=== PATIENT | female | born 1995 ===

== ENCOUNTER 2017-02-20 08:25 | Emergency (ER) | payer MEDICAID ==
[2017-02-20 08:28] VITALS: RESP 19; BMI 22.1
--- NOTE | 2017-02-20 08:39 | ED PDOC ---
HPI: General Adult Time Seen by Provider: 02/20/17 08:32 Chief Complaint (Nursing): Abdominal Pain Chief Complaint (Provider): abdominal pain History Per: Patient History/Exam Limitations: no limitations Additional Complaint(s): 21yo female comes to the ED complaining of sharp abdominal pain that woke her this morning. States she had similar pain 2 days ago and several years ago. Pain several years ago was associated with a ruptured cyst. Last menstrual period was approximately 1 month ago however pain today is worse that normally associated with a period. No nausea, vomit, diarrhea, hematuria, dysuria. Past Medical History Reviewed: Historical Data, Nursing Documentation, Vital Signs Vital Signs: Last Vital Signs Temp 98.4 F 02/20/17 08:26 Pulse 91 H 02/20/17 08:26 Resp 19 02/20/17 08:26 BP 109/71 02/20/17 08:26 Pulse Ox 98 02/20/17 08:44 - Medical History Other PMH: ovarian cyst - Surgical History Surgical History: No Surg Hx - Family History Family History: States: Unknown Family Hx - Home Medications Home Medications: Ambulatory Orders Medication Instructions Recorded Miconazole 2% [Miconazole 2% Cream] 1 ea EXT BID #1 tube 10/25/14 Nitrofurantoin Macrocrystals 100 mg PO BID #14 cap 12/16/14 [Macrobid] Ciprofloxacin HCl [Cipro] 500 mg PO BID #20 tab 02/20/17 traMADol [Ultram] 50 mg PO Q8 #10 tab 02/20/17 - Allergies Allergies/Adverse Reactions: Allergies Allergy/AdvReac Type Severity Reaction Status Date / Time acetaminophen [From Percocet] Allergy Mild RASH Verified 02/20/17 08:29 oxycodone HCl [From Percocet] Allergy Mild RASH Verified 02/20/17 08:29 Review of Systems ROS Statement: Except As Marked, All Systems Reviewed And Found Negative Gastrointestinal: Positive for: Abdominal Pain. Negative for: Nausea, Vomiting , Diarrhea Genitourinary Female: Negative for: Dysuria, Hematuria Physical Exam - Reviewed Nursing Documentation Reviewed: Yes Vital Signs Reviewed: Yes - Physical Exam Appears: Positive for: Well, Non-toxic, No Acute Distress Head Exam: Positive for: ATRAUMATIC, NORMAL INSPECTION, NORMOCEPHALIC Skin: Positive for: Warm, Dry Eye Exam: Positive for: EOMI, PERRL Respiratory: Negative for: Respiratory Distress Gastrointestinal/Abdominal: Positive for: Soft, Tenderness (right lower quadrant ). Negative for: Guarding, Rebound Extremity: Positive for: Normal ROM Neurologic/Psych: Positive for: Alert, Oriented (x3) - Laboratory Results Result Diagrams: 02/20/17 08:49 02/20/17 08:49 - ECG O2 Sat by Pulse Oximetry: 98 (RA) Pulse Ox Interpretation: Normal Medical Decision Making Medical Decision Makin impression ovarian cyst vs appendicitis Plan: -US Transvaginal -CT abd/pel -Labs -reassess Disposition - Clinical Impression Clinical Impression: Ovarian cyst - Patient ED Disposition Is Patient to be Admitted: No - Disposition [facility] Disposition: Routine/Home Disposition Time: 14:47 Condition: FAIR Prescriptions: Ciprofloxacin HCl [Cipro] 500 mg PO BID #20 tab traMADol [Ultram] 50 mg PO Q8 #10 tab Instructions: Ovarian Cyst (ED) Additional Comments - Additional Comments Additional Comments: Scribe Attestation: Documented by Ronald Calvillo acting as a scribe for Emeterio Menon MD. Provider Scribe Attestation: All medical record entries made by the Scribe were at my direction and personally dictated by me. I have reviewed the chart and agree that the record accurately reflects my personal performance of the history, physical exam, medical decision making, and the department course for this patient. I have also personally directed, reviewed, and agree with the discharge instructions and disposition.
[2017-02-20] MEDS ORDERED: Iohexol 240 (50 ml) ONE (08:41)
[2017-02-20] MEDS ORDERED: Iohexol 240 (50 ml) PO ONE (08:42)
[2017-02-20 08:57] LABS: BASO # 0.1 K/uL (0.0-0.2); BASO % 0.7 % (0.0-2.0); EOS # 0.5 K/uL (0.0-0.7); EOS % 7.2 % (0.0-4.0); HEMATOCRIT 36.9 % (34.0-47.0); LYMPH # 2.7 K/uL (1.0-4.3); LYMPH % 36.4 % (20.0-40.0); MEAN CORPUSCULAR HEMOGLOBIN 28.9 pg (27.0-31.0); MEAN CORPUSCULAR HGB CONC 33.2 g/dL (33.0-37.0); MEAN PLATELET VOLUME 7.2 fl (7.2-11.7); MONO # 0.4 K/uL (0.0-0.8); MONO % 5.5 % (0.0-10.0); NEUT # 3.8 K/uL (1.8-7.0); NEUT % 50.2 % (50.0-75.0); NRBC % 0.1 % (0.0-0.0); RED CELL DISTRIBUTION WIDTH 15.7 % (11.5-14.5); WHITE BLOOD COUNT 7.5 K/uL (4.8-10.8)
[2017-02-20 09:03] LABS: ALB/GLOB RATIO 1.2 (1.0-2.1); ALKALINE PHOSPHATASE 58 U/L (38-126); ALT/SGPT 22 U/L (9-52); AST/SGOT 24 U/L (14-36); BILIRUBIN,TOTAL 0.3 mg/dl (0.2-1.3); BLOOD UREA NITROGEN 17 mg/dl (7-17); CALCIUM 9.4 mg/dL (8.4-10.2); CARBON DIOXIDE 21 mmol/L (22-30); CHLORIDE 106 mmol/L (98-107); GFR AFRICAN-AMERICAN > 60; GLUCOSE,RANDOM 86 mg/dL (65-105); SODIUM 140 mmol/l (132-148); TOTAL PROTEIN 7.6 G/DL (6.3-8.2)
--- NOTE | 2017-02-20 10:18 | US ---
HISTORY: RLQ pain COMPARISON: Transvaginal ultrasound performed 05/18/14 TECHNIQUE: Transvaginal pelvic ultrasound FINDINGS: UTERUS: Measures 8.9 x 5.9 x 4.5 cm. Anteverted. ENDOMETRIUM: Measures 1.4 cm in diameter. CERVIX: No cervical abnormality identified. RIGHT OVARY: Measures 4.9 x 4.0 x 3.7 cm. Blood flow is demonstrated to the right ovary. 2.8 x 2.9 x 1.0 cm complex appearing cyst. 1 cm probable para ovarian cyst. LEFT OVARY: Measures 3.1 x 2.8 x 2.4 cm. Blood flow is demonstrated to the left ovary. FREE FLUID: Small pelvic free fluid. Left adnexal free fluid. OTHER FINDINGS: None. IMPRESSION: 2.8 x 2.9 x 1.0 cm complex appearing right ovarian cyst. 1 cm probable right para ovarian cyst. Small pelvic free fluid. Left adnexal free fluid.
[2017-02-20] MEDS ORDERED: Iohexol 300 50 ML ONE (13:42)
[2017-02-20] MEDS ORDERED: Sodium Chloride 0.9% 50 ML IV ONE (13:43)
--- NOTE | 2017-02-20 14:46 | CT ---
PROCEDURE: CT Abdomen and Pelvis with oral and IV contrast. HISTORY: abd pain COMPARISON: CT abdomen and pelvis performed 12/04/12, transvaginal ultrasound performed 02/20/17 TECHNIQUE: Contiguous axial images of the abdomen and pelvis. Oral and IV contrast was administered. Coronal and Sagittal reformats generated and reviewed. Contrast dose: 95 mL Omnipaque 300 Radiation dose: Total exam DLP = 353.36 mGy-cm. This CT exam was performed using one or more of the following dose reduction techniques: Automated exposure control, adjustment of the mA and/or kV according to patient size, and/or use of iterative reconstruction technique. FINDINGS: LOWER THORAX: No visible consolidation, pleural effusion, or pneumothorax. LIVER: Unremarkable. GALLBLADDER AND BILE DUCTS: Unremarkable. PANCREAS: Unremarkable. SPLEEN: Unremarkable. ADRENALS: Unremarkable. KIDNEYS AND URETERS: The kidneys enhance symmetrically. No hydronephrosis or obstructing renal calculus. BLADDER: Distended urinary bladder. REPRODUCTIVE: Uterus is present. APPENDIX: The appendix appears within normal limits of caliber. No secondary signs of acute appendicitis. BOWEL: The stomach is nondistended. The bowel loops appear within normal limits of caliber without evidence of intestinal obstruction. PERITONEUM: Small pelvic free fluid. Left adnexal fluid. No definite free air. LYMPH NODES: No bulky lymphadenopathy identified. VASCULATURE: No aortic aneurysm. BONES: No acute osseous abnormality is detected. OTHER FINDINGS: None. IMPRESSION: Small pelvic free fluid. Prominent left adnexal fluid. Distended urinary bladder.
[2017-02-20 14:59] VITALS: BP 110/74; PULSE 69; TEMP 98.6; O2SAT 100
== END 2017-02-20 14:59 | disposition home or self-care (01) ==
LOC: H.ER 08:25
DX: N83.209 Unspecified ovarian cyst, unspecified side (principal); R10.31 Right lower quadrant pain

== ENCOUNTER 2017-02-22 14:57 | Emergency (ER) | payer MEDICAID ==
[2017-02-22 14:57] VITALS: BMI 22.1
[2017-02-22 15:25] VITALS: BP 112/74; PULSE 84; RESP 16; TEMP 98.2; O2SAT 100
--- NOTE | 2017-02-22 15:36 | ED PDOC ---
HPI: Allergic Reaction Time Seen by Provider: 02/22/17 15:28 Chief Complaint (Nursing): Allergic Reaction Chief Complaint (Provider): rash History Per: Patient History/Exam Limitations: no limitations Onset/Duration Of Symptoms: Hrs Current Symptoms Are (Timing): Still Present Additional Complaint(s): 21 y/o female presents to the emergency department with a complaint of an allergy to the intravenous contrast dye that she received for a CT abdomen/ pelvis on 02/20/2017 in this ED. Patient states itchiness and rash began shortly after receiving the dye. She reports she had experienced similar episode the last time she received IV dye but at the time she has also taken percocet and thought this is what caused the allergy. Patient has since taken percocet with no reaction. Patient took Benadryl yesterday but it did not help. She denies shortness of breath or difficulty swallowing. Past Medical History Reviewed: Historical Data, Nursing Documentation, Vital Signs Vital Signs: Last Vital Signs Temp 98.2 F 02/22/17 15:23 Pulse 84 02/22/17 15:23 Resp 16 02/22/17 15:23 BP 112/74 02/22/17 15:23 Pulse Ox 100 02/22/17 15:23 - Medical History PMH: Anemia - Surgical History Other surgeries: ovarian cyst removal - Family History Family History: States: No Known Family Hx - Living Arrangements Living Arrangements: With Family - Social History Current smoker - smoking cessation education provided: No Ex-Smoker (has not smoked in the last 12 months): No Alcohol: None Drugs: Denies - Home Medications Home Medications: Ambulatory Orders Medication Instructions Recorded Miconazole 2% [Miconazole 2% Cream] 1 ea EXT BID #1 tube 10/25/14 Nitrofurantoin Macrocrystals 100 mg PO BID #14 cap 12/16/14 [Macrobid] Ciprofloxacin HCl [Cipro] 500 mg PO BID #20 tab 02/20/17 traMADol [Ultram] 50 mg PO Q8 #10 tab 02/20/17 Prednisone 50 mg PO DAILY #5 tablet 02/22/17 - Allergies Allergies/Adverse Reactions: Allergies Allergy/AdvReac Type Severity Reaction Status Date / Time IV CONSTRAST Allergy RASH Uncoded 02/22/17 15:22 Review of Systems ROS Statement: Except As Marked, All Systems Reviewed And Found Negative Constitutional: Negative for: Fever ENT: Negative for: Other (difficulty swallowing) Respiratory: Negative for: Shortness of Breath Skin: Positive for: Rash (entire body), Other (Itchiness of the entire body) Physical Exam - Reviewed Nursing Documentation Reviewed: Yes Vital Signs Reviewed: Yes - Physical Exam Appears: Positive for: Non-toxic, No Acute Distress Head Exam: Positive for: ATRAUMATIC, NORMOCEPHALIC Skin: Positive for: Warm, Dry, Rash (Diffuse urticarial rash to the entire body) Eye Exam: Positive for: Normal appearance, EOMI, PERRL ENT: Positive for: Normal ENT Inspection. Negative for: Pharyngeal Erythema Neck: Positive for: Normal, Supple Cardiovascular/Chest: Positive for: Regular Rate, Rhythm. Negative for: Murmur Respiratory: Positive for: Normal Breath Sounds. Negative for: Accessory Muscle Use, Respiratory Distress Extremity: Negative for: Pedal Edema Neurologic/Psych: Positive for: Alert, Oriented - Laboratory Results Urine POC: Negative (patient declined test, states she is certain she is not ) - ECG O2 Sat by Pulse Oximetry: 100 (RA) Pulse Ox Interpretation: Normal - Progress ED Course And Treament: MDM: Time: 15:28 Impression: Allergic reaction to contrast dye Plan: IM solumedrol PO benadryl Upon provider reevaluation patient is medically stable, and requires no further treatment in the ED at this time. Patient will be discharged home with Rx for Prednisone 50 mg and she was instructed to continue with OTC benadryl. Counseling was provided and all questions were answered regarding diagnosis and need for follow up with Seun Alston DO. There is agreement to discharge plan. Return if symptoms persist or worsen. Clinical Impression: Allergy to intravenous contrast media Scribe Attestation: Documented by Danae Westfall, acting as a scribe for Lauren Bell PA-C. Provider Scribe Attestation: All medical record entries made by the Scribe were at my direction and personally dictated by me. I have reviewed the chart and agree that the record accurately reflects my personal performance of the history, physical exam, medical decision making, and the department course for this patient. I have also personally directed, reviewed, and agree with the discharge instructions and disposition. Disposition - Clinical Impression Clinical Impression: Allergy to intravenous contrast media - Patient ED Disposition Is Patient to be Admitted: No Counseled Patient/Family Regarding: Diagnosis, Need For Followup, Rx Given - Disposition Referrals: Alecia Kohli DO [[facility]] - Disposition: Routine/Home Disposition Time: 15:35 Condition: STABLE Additional Instructions: Take rx meds as directed. Continue with [id number] Benadryl, take 2 tablets every 6 hours. Follow up in 2-3 days with primary care doctor. Prescriptions: Prednisone 50 mg PO DAILY #5 tablet Instructions: General Allergic Reaction (ED), Urticaria (ED)
== END 2017-02-22 16:00 | disposition home or self-care (01) ==
LOC: H.ER 14:57
DX: T78.40XA Allergy, unspecified, initial encounter (principal); T50.8X5A Adverse effect of diagnostic agents, initial encounter; Y92.89 Other specified places as the place of occurrence of the external cause

== ENCOUNTER 2017-06-18 10:43 | Emergency (ER) | payer MEDICAID ==
[2017-06-18 10:43] VITALS: BMI 22.1
[2017-06-18 11:06] VITALS: BP 107/69; PULSE 78; RESP 19; TEMP 99; O2SAT 99
--- NOTE | 2017-06-18 11:45 | ED PDOC ---
HPI: Abdomen Time Seen by Provider: 06/18/17 10:56 Chief Complaint (Nursing): Abdominal Pain Chief Complaint (Provider): Pelvic Pain History Per: Patient History/Exam Limitations: no limitations Onset/Duration Of Symptoms: Days (x 1) Current Symptoms Are (Timing): Still Present Additional Complaint(s): Debo is a 21 y/o female who presents to the ED complaining of pelvic pain since this morning. Patients feels pain is similar to when she had a "bursted pelvis". Also had one episode of dysuria. Denies hematuria and vaginal bleeding. States she had an ultrasound 2 months ago showing 2 small ovarian cysts. Patient has not taken any medications for pain relief. Of note, patient refuses to complete any CT scans. Also states that she was given medication (testosterone) which made her "hairy". PMD: Arlene Zaman Past Medical History Reviewed: Historical Data, Nursing Documentation, Vital Signs Vital Signs: Last Vital Signs Temp 99.0 F 06/18/17 11:00 Pulse 78 06/18/17 11:00 Resp 19 06/18/17 11:00 BP 107/69 06/18/17 11:00 Pulse Ox 99 06/18/17 15:59 - Medical History PMH: Anemia Other PMH: two small ovarian cysts per ultrasound 2 months ago - Surgical History Other surgeries: Laparoscopic ovarian cyst removal - Family History Family History: States: Unknown Family Hx - Social History Current smoker - smoking cessation education provided: No Alcohol: None Drugs: Denies - Home Medications Home Medications: Ambulatory Orders Medication Instructions Recorded Miconazole 2% [Miconazole 2% Cream] 1 ea EXT BID #1 tube 10/25/14 Nitrofurantoin Macrocrystals 100 mg PO BID #14 cap 12/16/14 [Macrobid] Ciprofloxacin HCl [Cipro] 500 mg PO BID #20 tab 02/20/17 traMADol [Ultram] 50 mg PO Q8 #10 tab 02/20/17 Prednisone 50 mg PO DAILY #5 tablet 02/22/17 Naproxen [Naprosyn] 500 mg PO BID PRN #15 tablet 06/18/17 - Allergies Allergies/Adverse Reactions: Allergies Allergy/AdvReac Type Severity Reaction Status Date / Time IV CONSTRAST Allergy RASH Uncoded 02/22/17 15:22 Review of Systems ROS Statement: Except As Marked, All Systems Reviewed And Found Negative Genitourinary Female: Positive for: Dysuria (x 1 episode), Pelvic Pain. Negative for: Hematuria, Vaginal Bleeding Physical Exam - Reviewed Nursing Documentation Reviewed: Yes Vital Signs Reviewed: Yes - Physical Exam Appears: Positive for: Non-toxic, No Acute Distress Head Exam: Positive for: ATRAUMATIC, NORMAL INSPECTION, NORMOCEPHALIC Skin: Positive for: Normal Color, Warm, Dry Eye Exam: Positive for: EOMI, Normal appearance, PERRL Neck: Positive for: Normal, Painless ROM, Supple Cardiovascular/Chest: Positive for: Regular Rate, Rhythm. Negative for: Murmur Respiratory: Positive for: Normal Breath Sounds. Negative for: Accessory Muscle Use, Respiratory Distress Gastrointestinal/Abdominal: Positive for: Soft, Tenderness (Right suprapubic tenderness ). Negative for: Guarding, Rebound Back: Positive for: Normal Inspection. Negative for: Vertebral Tenderness Extremity: Positive for: Normal ROM. Negative for: Pedal Edema, Deformity Neurologic/Psych: Positive for: Alert, Oriented - Laboratory Results Result Diagrams: 06/18/17 11:55 06/18/17 11:55 - ECG O2 Sat by Pulse Oximetry: 99 (RA) Pulse Ox Interpretation: Normal Medical Decision Making Medical Decision Making: Time: 11:37 Impression: Ovarian Cyst Initial Plan: --CMP --CBC w/ differential --ED urine test --ED urine dipstick --Urinalysis --Morphine 2 mg IV --Pending US Pelvis/Transvaginal Time: 15:16 US Pelvis/Transvaginal: FINDINGS: Uterus/cervix: The uterus measures 8.8 x 4.2 x 5.4 cm and is anteverted. The endometrial stripe thickness is 15 mm. No myometrial mass. Right ovary: There is a complex/hemorrhagic cyst of the right ovary measuring a maximum of 2.8 cm. The right ovary is prominent measuring 4.2 x 3.9 x 3.7 cm with normal Doppler flow. Left ovary: The left ovary measures 3.3 x 1.2 x 3.5 cm with normal Doppler flow. Normal blood flow. Free fluid: There is a small volume of free fluid in the pelvis, cannot exclude ovarian cyst rupture. Bladder: Unremarkable as visualized. Wall is normal thickness for degree of distention. IMPRESSION: 1. There is a complex/hemorrhagic cyst of the right ovary measuring a maximum of 2.8 cm. 2. There is a small volume of free fluid in the pelvis, cannot exclude ovarian cyst rupture. Time: 15:51 --Spoke to Dr. Bon TAO control panel assembler, labs and US results discussed, recommended patient be discharged and follow up as outpatient --Copies of labs and ultrasound report were given to patient Clinical Impression: Hemorrhagic right ovarian cyst Upon provider evaluation patient is medically stable, and requires no further treatment in the ED at this time. Patient will be discharged with Rx for Naprosyn for pain management. Counseling was provided and all questions were answered regarding diagnosis and need for follow up with OBGYN within 1-2 days. There is agreement to discharge plan. Return if symptoms persist or worsen. Scribe Attestation: Documented by Britta Fisher, acting as a scribe for Emeterio Menon MD Provider Scribe Attestation: All medical record entries made by the Scribe were at my direction and personally dictated by me. I have reviewed the chart and agree that the record accurately reflects my personal performance of the history, physical exam, medical decision making, and the department course for this patient. I have also personally directed, reviewed, and agree with the discharge instructions and disposition. Disposition - Clinical Impression Clinical Impression: Hemorrhagic cyst of right ovary - Patient ED Disposition Is Patient to be Admitted: No Doctor Will See Patient In The: Office Counseled Patient/Family Regarding: Studies Performed, Diagnosis, Need For Followup, Rx Given - Disposition Referrals: [facility] [Outside] Disposition: Routine/Home Disposition Time: 15:52 Condition: STABLE Additional Instructions: FOLLOW-UP WITH YOUR OB-INTERACTIVE [facility] SPECIALIST WITHIN 2 DAYS FOR REEVALUATION. Prescriptions: Naproxen [Naprosyn] 500 mg PO BID PRN #15 tablet PRN Reason: Pain, Moderate (4-7) Instructions: Ovarian Cyst (ED) Forms: [facility] (Latvian)
[2017-06-18 12:04] LABS: BASO % 0.5 % (0.0-2.0); EOS # 0.5 K/uL (0.0-0.7); HEMOGLOBIN 11.8 g/dL (12.0-16.0); LYMPH # 2.4 K/uL (1.0-4.3); LYMPH % 35.1 % (20.0-40.0); MEAN CORPUSCULAR HEMOGLOBIN 29.4 pg (27.0-31.0); MEAN CORPUSCULAR HGB CONC 32.9 g/dL (33.0-37.0); MEAN PLATELET VOLUME 7.6 fl (7.2-11.7); MONO # 0.4 K/uL (0.0-0.8); NEUT # 3.5 K/uL (1.8-7.0); NEUT % 51.4 % (50.0-75.0); NRBC % 0.1 % (0.0-0.0); RBC 4.02 Mil/uL (3.80-5.20); RED CELL DISTRIBUTION WIDTH 14.8 % (11.5-14.5); WHITE BLOOD COUNT 6.9 K/uL (4.8-10.8)
[2017-06-18 12:18] LABS: ALB/GLOB RATIO 1.5 (1.0-2.1); ALBUMIN 4.4 g/dL (3.5-5.0); ALT/SGPT 39 U/L (9-52); AST/SGOT 33 U/L (14-36); BLOOD UREA NITROGEN 9 mg/dl (7-17); CALCIUM 9.5 mg/dL (8.4-10.2); GFR AFRICAN-AMERICAN > 60; GFR NON-AFRICAN AMERICAN > 60
[2017-06-18 12:34] LABS: MEAN CELL VOLUME 89.2 fl (81.0-99.0)
[2017-06-18 12:53] LABS: SQUAMOUS EPITHIAL 2 /hpf (0-5); URINE BACTERIA RARE (<OCC); URINE BILIRUBIN NEGATIVE (NEGATIVE); URINE BLOOD NEGATIVE (NEGATIVE); URINE CLARITY SLIGHTY-CLOUDY (Clear); URINE COLOR YELLOW (YELLOW); URINE GLUCOSE (UA) NEG (Normal); URINE LEUKOCYTE ESTERASE NEG Leu/uL (Negative); URINE NITRATE NEGATIVE (NEGATIVE); URINE PROTEIN NEGATIVE (NEGATIVE); URINE UROBILINOGEN 0.2-1.0 mg/dL (0.2-1.0)
--- NOTE | 2017-06-19 10:09 | US ---
HISTORY: R suprapubic pain. LMP 05/30/2017. COMPARISON: 02/20/2017. TECHNIQUE: Transvaginal only. Real -time technique with 2D, duplex and color Doppler FINDINGS: UTERUS: Measures 4.2 x 5.4 x 8.8 cm. Normal in size and appearance. No fibroid or other mass lesion seen. ENDOMETRIUM: Measures 14.6 mm in diameter. Endometrial hypertrophy without focal abnormality CERVIX: No cervical abnormality identified. RIGHT OVARY: Measures 3.9 x 4.2 cm. Complex mass likely a cyst with debris/ hemorrhage. Normal flow. Adjacent free fluid. LEFT OVARY: Measures 3.3 x 1.2 cm. No solid mass. Normal flow. FREE FLUID: No significant free fluid noted. OTHER FINDINGS: None. IMPRESSION: Complex cyst/ mass right adnexa. Similar finding identified previously. No additional/ significant abnormalities.
== END 2017-06-18 16:05 | disposition home or self-care (01) ==
LOC: H.ER 10:43
DX: N83.201 Unspecified ovarian cyst, right side (principal)